=== PATIENT | female | born 1970 | race Caucasian/White ===

== ENCOUNTER 2025-01-07 07:24 | Outpatient (CLI) | payer OTHER, SELFPAY ==
[2025-01-07 07:57] LABS: Hematocrit 41.1 % (37.0-47.0); Hemoglobin 13.2 g/dL (12.0-15.0); Immature Granulocyte Percent A 0.6 % (0-0.5); Lymphocytes Absolute Auto 1.70 K/mm3 (0.9-3.2); Mean Corpuscular HGB Conc 32.1 g/dl (32-36); Mean Corpuscular Hemoglobin 30.8 pg (26-34); Mean Corpuscular Volume 96.0 fl (80-100); Nucleated Red Blood Cells Absolute Auto 0.000 K/mm3 (0.0-0.012); Nucleated Red Blood Cells Perc 0.0 % (0.0-0.2); Platelet Count Result 389 k/mm3 (150-375); Red Blood Count 4.28 M/mm3 (4.2-5.4); White Blood Count 9.6 K/mm3 (4.5-10.0)
[2025-01-07 08:18] LABS: Alanine Aminotransferase 16 U/L (6-35); Albumin Level 4.1 g/dL (3.5-5.1); Alkaline Phosphatase 78 U/L (38-126); Anion Gap 6 mmol/L (4-12); Aspartate Amino Transferase 33 U/L (14-36); Bilirubin,Total 0.7 mg/dL (0.2-1.3); Blood Urea Nitrogen 16 mg/dL (7-17); Calcium 8.9 mg/dL (8.4-10.2); Carbon Dioxide 25 mmol/L (22-30); Chloride 104 mmol/L (98-107); Cholesterol 273 mg/dL (0-200); Estimated Glomerular Filt Rate > 60; Glucose 88 mg/dL (65-110); Potassium 4.2 mmol/L (3.4-5.0); Sodium 135 mmol/L (137-145); Total Protein 7.4 g/dL (6.3-8.2); Triglycerides 79 mg/dL (<150)
[2025-01-07 08:33] LABS: HDL Direct 122 mg/dL
[2025-01-07 08:55] LABS: Thyroid Stimulating Hormone Reflex 2.360 uIU/mL (0.465-4.68)
[2025-01-07 12:01] LABS: Hemoglobin A1C 5.5 % (<5.7)
[2025-01-10 07:09] LABS: ANA by IFA Rfx Titer/Pattern Negative (.)
== END 2025-01-07 07:25 | disposition home or self-care (01) ==
LOC: ANHLAB 07:33
PROVIDERS: PCP Nurse Practitioner; Visit Provider Nurse Practitioner
DX: E03.9 Hypothyroidism, unspecified (principal); M25.50 Pain in unspecified joint; Z00.00 Encounter for general adult medical examination without abnormal findings
CPT/HCPCS: 36415; 80053; 80061; 82306; 83036; 84443; 85025; 86038; 86430